=== PATIENT | female | born 1965 | race Caucasian/White ===

== ENCOUNTER 2017-03-23 18:58 | Emergency (ER) | payer BC, SELFPAY ==
[2017-03-23] MEDS: MORPHINE 4 MG/ML 1ML SYRINGE IV ×4 (18:46→23:15)
[2017-03-23] MEDS: PERCOCET 5MG/325MG TAB PO (23:47)
== END 2017-03-24 00:06 | disposition home or self-care (01) ==
LOC: M ED 03-24 00:06
DX: S52.101A Unspecified fracture of upper end of right radius, initial encounter for closed fracture (principal); S42.102A Fracture of unspecified part of scapula, left shoulder, initial encounter for closed fracture; V86.52XA Driver of snowmobile injured in nontraffic accident, initial encounter; Y92.89 Other specified places as the place of occurrence of the external cause; Y93.89 Activity, other specified; Y99.8 Other external cause status; I10 Essential (primary) hypertension; Z79.899 Other long term (current) drug therapy; Z88.0 Allergy status to penicillin; Z88.1 Allergy status to other antibiotic agents; Z88.2 Allergy status to sulfonamides; Z91.040 Latex allergy status
CPT/HCPCS: 73030